=== PATIENT | male | born 1955 | race Caucasian/White ===

== ENCOUNTER 2020-08-30 15:21 | Emergency (ER) | payer MEDICARE, SELFPAY ==
[~2020-08-30] VITALS: Ht 210.8 cm; Wt 83.9 kg
[~2020-08-30 15:21] MED LIST: HUM10VIA3 SQ; INSU100V9 SQ; LISI10TA5 PO; METO25TA3 PO; NITSL SL; OMEP20CA15 PO; SIMV10TA2 PO; TERA5CAP4 PO
[2020-08-30 15:52] VITALS: BP_SYST 142
[2020-08-30 18:13] VITALS: BP_SYST 135
== END 2020-08-30 18:13 | disposition home or self-care (01) ==
LOC: SED 15:21
DX: M79.604 Pain in right leg (principal); E78.00 Pure hypercholesterolemia, unspecified; I10 Essential (primary) hypertension; E11.9 Type 2 diabetes mellitus without complications; Z88.0 Allergy status to penicillin; Z88.2 Allergy status to sulfonamides; Z79.899 Other long term (current) drug therapy; Z79.4 Long term (current) use of insulin
CPT/HCPCS: 93005; 93923; 99284

== ENCOUNTER 2021-01-07 18:21 | Emergency (ER) | payer MEDICARE, SELFPAY ==
[~2021-01-07] VITALS: Ht 185.4 cm; Wt 81.6 kg
[~2021-01-07 18:21] MED LIST changes: +LISI10TA29 PO; -LISI10TA5 PO
[2021-01-07 18:40] VITALS: BP_SYST 157
--- NOTE | 2021-01-07 18:40 | NUR ---
Patient to ER bed 6 to gown for evaluation. Side rails up.
--- NOTE | 2021-01-07 18:41 | NUR ---
pt came into ER with complaint of dizziness which started 2 hours ago. BS 194. pt AAOX4 and able to speak in full sentences. Resting in gurney eleavted blood pressure 157/85.
--- NOTE | 2021-01-07 18:48 | NUR ---
ER at bedside examining patient.
--- NOTE | 2021-01-07 19:13 | NUR ---
care endorsed to Brian LANZA
--- NOTE | 2021-01-07 19:36 | NUR ---
Pt taken to Radiology in stable condition
--- NOTE | 2021-01-07 20:05 | NUR ---
Pt back from Radiology, well tolerated
[2021-01-07 20:27] LABS: BASOPHILS % (AUTO) 0.5 % (0.0-2.0); EOSINOPHILS # (AUTO) 0.1 K/uL (0.0-0.4); EOSINOPHILS % (AUTO) 1.6 % (0.0-4.0); HEMATOCRIT 42.2 % (36-54); HEMOGLOBIN 14.4 g/dL (14.0-18.0); LYMPHOCYTES # (AUTO) 0.7 K/uL (1.0-5.5); LYMPHOCYTES % (AUTO) 10.1 % (20.5-51.5); MEAN CORPUSCULAR HEMOGLOBIN 30 pg (27-31); MEAN CORPUSCULAR HGB CONC 34 % (32-36); MEAN CORPUSCULAR VOLUME 87 fL (79.0-98.0); MONOCYTES # (AUTO) 0.4 K/uL (0.0-1.0); MONOCYTES % (AUTO) 6.8 % (1.7-9.3); NEUTROPHILS # (AUTO) 5.3 K/uL (1.8-7.7); PLATELET COUNT (AUTO) 170 K/uL (130-430); RED BLOOD CELL COUNT(AUTO) 4.87 MIL/uL (4.2-6.2); WHITE BLOOD COUNT (AUTO) 6.6 K/uL (4.8-10.8)
[2021-01-07 20:38] LABS: CALCIUM 9.1 mg/dL (8.4-11.0); CREATININE 1.15 mg/dL (0.55-1.30); POTASSIUM 4.1 mmol/L (3.5-5.1)
[2021-01-07 20:40] LABS: INR 0.9 (0.80-1.20); PROTHROMBIN TIME 9.6 SECS (9.5-12.5)
--- NOTE | 2021-01-07 20:40 | NUR ---
Dr. Cam allowed family visit pt at bedside before possible adm to
[2021-01-07 20:44] LABS: ALBUMIN 3.8 g/dL (3.4-4.8); TOTAL BILIRUBIN 0.3 mg/dL (0.0-1.0)
--- NOTE | 2021-01-07 21:13 | NUR ---
Vu CROW spoke with Dr. Cam, setting up for possible transfer to [facility]
--- NOTE | 2021-01-07 22:16 | NUR ---
Pt updated and aware on transport to [facility]
[2021-01-07 23:00] VITALS: BP_SYST 135
--- NOTE | 2021-01-07 23:00 | NUR ---
Patient to be transferred to [facility] ED. Is being transferred due to higher level of care. Receiving facility has accepting physician and available space. ER physician has signed transfer form. Patient or responsible alliance party has agreed to transfer and signed form. Patient belongings inventoried and will be sent with patient. Copy of nursing notes, lab reports, EKG, Physicians Orders and X-rays to be sent with patient. Report called to Teresita at receiving facility. Receiving physician is Dr. Luevano. [facility] bedside for immediate transport
== END 2021-01-07 23:00 | disposition short-term general hospital (02) ==
LOC: SED 18:21
DX: G45.9 Transient cerebral ischemic attack, unspecified (principal); E11.9 Type 2 diabetes mellitus without complications; I10 Essential (primary) hypertension; Z88.0 Allergy status to penicillin; Z88.8 Allergy status to other drugs, medicaments and biological substances; Z79.4 Long term (current) use of insulin; Z79.899 Other long term (current) drug therapy
CPT/HCPCS: 36415; 70450-TC; 71045; 76376; 80053; 82962; 83605; 84484; 85025; 85610-TC; 85730-TC; 93005; 99285

== ENCOUNTER 2021-07-28 17:05 | Emergency (ER) | payer MEDICARE, SELFPAY ==
[~2021-07-28] VITALS: Ht 185.4 cm; Wt 83.0 kg
[2021-07-28 17:11] VITALS: BP_SYST 166
[2021-07-28 18:47] LABS: BASOPHILS % (AUTO) 0.4 % (0.0-2.0); EOSINOPHILS # (AUTO) 0.1 K/uL (0.0-0.4); EOSINOPHILS % (AUTO) 1.7 % (0.0-4.0); HEMATOCRIT 40.7 % (36-54); HEMOGLOBIN 14.4 g/dL (14.0-18.0); LYMPHOCYTES # (AUTO) 0.7 K/uL (1.0-5.5); LYMPHOCYTES % (AUTO) 13.5 % (20.5-51.5); MEAN CORPUSCULAR HEMOGLOBIN 29 pg (27-31); MEAN CORPUSCULAR HGB CONC 35 % (32-36); MEAN CORPUSCULAR VOLUME 83 fL (79.0-98.0); MONOCYTES # (AUTO) 0.4 K/uL (0.0-1.0); MONOCYTES % (AUTO) 7.5 % (1.7-9.3); NEUTROPHILS % (AUTO) 76.9 % (40.0-70.0); PLATELET COUNT (AUTO) 193 K/uL (130-430); RED BLOOD CELL COUNT(AUTO) 4.91 MIL/uL (4.2-6.2); RED CELL DISTRIBUTION WIDTH 12.8 % (9.0-15.0); WHITE BLOOD COUNT (AUTO) 5.3 K/uL (4.8-10.8)
[2021-07-28 18:52] LABS: CALCIUM 8.9 mg/dL (8.4-11.0); CREATININE 0.8 mg/dL (0.55-1.30); POTASSIUM 3.9 mmol/L (3.5-5.1)
[2021-07-28 19:11] LABS: TOTAL BILIRUBIN 0.3 mg/dL (0.0-1.0)
[2021-07-28 20:10] VITALS: BP_SYST 160
== END 2021-07-28 20:10 | disposition home or self-care (01) ==
LOC: SED 17:05
DX: R06.02 Shortness of breath (principal); I10 Essential (primary) hypertension; E11.9 Type 2 diabetes mellitus without complications; Z88.1 Allergy status to other antibiotic agents; Z88.8 Allergy status to other drugs, medicaments and biological substances; Z79.899 Other long term (current) drug therapy
CPT/HCPCS: 36415; 71045; 80053; 85025; 93005; 99285

== ENCOUNTER 2022-02-02 17:01 | Emergency (ER) | payer MEDICARE ==
[~2022-02-02] VITALS: Ht 185.4 cm; Wt 82.6 kg
[2022-02-02 17:06] VITALS: BP_SYST 138
--- NOTE | 2022-02-02 17:09 | NUR ---
EKG performed at BS by CAROL. Physician given copy of EKG for review.
[2022-02-02 17:58] LABS: BASOPHILS % (AUTO) 0.8 % (0.0-2.0); EOSINOPHILS # (AUTO) 0.2 K/uL (0.0-0.4); EOSINOPHILS % (AUTO) 3.1 % (0.0-4.0); HEMATOCRIT 41.9 % (36-54); HEMOGLOBIN 14.5 g/dL (14.0-18.0); LYMPHOCYTES # (AUTO) 0.8 K/uL (1.0-5.5); LYMPHOCYTES % (AUTO) 15.6 % (20.5-51.5); MEAN CORPUSCULAR HEMOGLOBIN 29 pg (27-31); MEAN CORPUSCULAR HGB CONC 35 % (32-36); MEAN CORPUSCULAR VOLUME 84 fL (79.0-98.0); MONOCYTES # (AUTO) 0.4 K/uL (0.0-1.0); NEUTROPHILS # (AUTO) 3.7 K/uL (1.8-7.7); NEUTROPHILS % (AUTO) 72.5 % (40.0-70.0); PLATELET COUNT (AUTO) 154 K/uL (130-430); RED BLOOD CELL COUNT(AUTO) 4.97 MIL/uL (4.2-6.2); RED CELL DISTRIBUTION WIDTH 13.3 % (9.0-15.0); WHITE BLOOD COUNT (AUTO) 5.1 K/uL (4.8-10.8)
--- NOTE | 2022-02-02 18:06 | NUR ---
ER IN TRIAGE ROOM examining patient.
[2022-02-02 18:11] LABS: ANION GAP 9 (5-15); CALCIUM 9.2 mg/dL (8.4-11.0); CHLORIDE 102 mmol/L (98-107); CREATININE 1.09 mg/dL (0.55-1.30); GLUCOSE 209 mg/dL (70-99); POTASSIUM 3.8 mmol/L (3.5-5.1); SODIUM SERUM 136 mmol/L (136-145); UREA NITROGEN, BLOOD 17 mg/dL (8-21)
[2022-02-02 18:21] LABS: GFR AFRICAN AMERICAN 87 mL/min (>90)
[2022-02-02 18:28] LABS: ALANINE AMINOTRANSFERASE 22 U/L (12-78); ALBUMIN 3.6 g/dL (3.4-4.8); ASPARTATE AMINOTRANSFERASE 14 U/L (10-37); TOTAL BILIRUBIN 0.4 mg/dL (0.0-1.0)
--- NOTE | 2022-02-02 19:32 | NUR ---
PATIENT BROUGHT IN COMPLAINING OF CHEST PAIN BEGINNING YESTERDAY REPORTS IT FEELING LIKE WHEN HE HAD PNEUMONIA. PAIN IS NONRADIATING WITH SOB ON EXHERTION. PATIENT REPORTS THAT HE STARTED A NEW INSULIN 5 DAYS AGO AND NOW HAVING BLOOD SUGARS OVER 350 WHICH IS NOT NORMAL FOR HIM. DENIES ANY PAIN.
[2022-02-02 21:02] VITALS: BP_SYST 126
--- NOTE | 2022-02-02 21:02 | NUR ---
Patient given written and verbal discharge instructions and verbalizes understanding. ER MD discussed with patient the results and treatment provided. Patient in stable condition. ID arm band removed. NO RX given. Patient educated on pain management and to follow up with PMD. Pain Scale 0/10 Opportunity for questions provided and answered.
== END 2022-02-02 21:02 | disposition home or self-care (01) ==
LOC: SED 17:01
DX: R07.81 Pleurodynia (principal); E11.65 Type 2 diabetes mellitus with hyperglycemia; I10 Essential (primary) hypertension; Z88.0 Allergy status to penicillin; Z88.2 Allergy status to sulfonamides; Z79.899 Other long term (current) drug therapy
CPT/HCPCS: 36415; 71045; 80053; 82009; 84484; 85025; 93005; 99285

== ENCOUNTER 2023-02-12 17:39 | Emergency (ER) | payer MEDICARE ==
[~2023-02-12] VITALS: Ht 185.4 cm; Wt 104.3 kg
[~2023-02-12 17:39] MED LIST changes: +SIMV-341 PO; -SIMV10TA2 PO
[2023-02-12 18:05] VITALS: BP_SYST 169; PULSE 75; RESP 18; O2SAT 93
--- NOTE | 2023-02-12 18:05 | NUR ---
PT TRIAGED AND PLACED IN BED 2. ASSUMED CARE. PT BIBS FROM HOME FOR C/O GENERALIZED WEAKNESS. PT IS AAOX4, NSR, DENIES N/V/D/C. DISTAL PULSES NORMAL, SKIN WARM, CDI, NO EDEMA. DENIES PAIN .SIDERAILS UP X2.
--- NOTE | 2023-02-12 18:10 | NUR ---
DR. CANALES AT BEDSIDE TO ASSESS PT.
--- NOTE | 2023-02-12 18:35 | NUR ---
# 20 gauge angiocath placed to LH. Use of asceptic technique. Opsite placed over site. Blood return noted. Blood for lab drawn from site. Flushed with 10 cc of normal saline. No evidence of infiltration noted. Patient tolerated well.
[2023-02-12] MEDS ORDERED: NACL 0.9% 1,000 ML IV ONE (18:45)
--- NOTE | 2023-02-12 18:52 | NUR ---
ns 1000ml bolus initiated.
[2023-02-12 19:01] LABS: BASOPHILS % (AUTO) 0.6 % (0.0-2.0); EOSINOPHILS # (AUTO) 0.1 K/uL (0.0-0.4); EOSINOPHILS % (AUTO) 2.5 % (0.0-4.0); HEMATOCRIT 43.7 % (36-54); HEMOGLOBIN 14.5 g/dL (14.0-18.0); LYMPHOCYTES # (AUTO) 0.8 K/uL (1.0-5.5); MEAN CORPUSCULAR HEMOGLOBIN 29 pg (27-31); MEAN CORPUSCULAR HGB CONC 33 % (32-36); MEAN CORPUSCULAR VOLUME 86 fL (79.0-98.0); MONOCYTES # (AUTO) 0.4 K/uL (0.0-1.0); MONOCYTES % (AUTO) 7.2 % (1.7-9.3); NEUTROPHILS # (AUTO) 3.8 K/uL (1.8-7.7); NEUTROPHILS % (AUTO) 74.7 % (40.0-70.0); PLATELET COUNT (AUTO) 175 K/uL (130-430); RED BLOOD CELL COUNT(AUTO) 5.07 MIL/uL (4.2-6.2); RED CELL DISTRIBUTION WIDTH 13.4 % (9.0-15.0); WHITE BLOOD COUNT (AUTO) 5.1 K/uL (4.8-10.8)
--- NOTE | 2023-02-12 19:29 | NUR ---
ENDORSED PT TO MYLA LOZANO. ALL QUESTIONS AND CONCERNS ADDRESSED.
[2023-02-12 19:36] LABS: CALCIUM 9.2 mg/dL (8.4-11.0); CREATININE 1.06 mg/dL (0.55-1.30)
[2023-02-12 19:42] VITALS: BP_SYST 172; PULSE 104; RESP 18; TEMP 98.7; O2SAT 98
--- NOTE | 2023-02-12 19:43 | NUR ---
Patient given written and verbal discharge instructions and verbalizes understanding. ER MD MALONE discussed with patient the results and treatment provided. Patient in stable condition. ID arm band removed. IV catheter removed intact and dressing applied, no active bleeding. Rx of NONE given. Patient educated on pain management and to follow up with PMD. Pain Scale . Opportunity for questions provided and answered. Medication side effect fact sheet provided.
== END 2023-02-12 19:46 | disposition home or self-care (01) ==
LOC: SED 17:39
DX: R53.1 Weakness (principal); R42 Dizziness and giddiness; E11.9 Type 2 diabetes mellitus without complications; I10 Essential (primary) hypertension; Z79.4 Long term (current) use of insulin; Z88.0 Allergy status to penicillin; Z88.2 Allergy status to sulfonamides; Z79.899 Other long term (current) drug therapy
CPT/HCPCS: 99284; 96360; 71045; 80048; 85025; 36415; J7030